=== PATIENT | male | born 1950 | race Caucasian/White ===

== ENCOUNTER 2018-08-18 09:28 | Outpatient (CLI) | payer MEDICARE ==
[2018-08-18 18:19] LABS: BUN - BLOOD UREA NITROGEN 15 mg/dL (6-20); CALCIUM 9.2 mg/dL (8.5-10.3); CARBON DIOXIDE - CO2 31 mmol/L (21-32); CHLORIDE 105 mmol/L (101-111); CHOL/HDL RATIO 2.9 (<5.0); CHOLESTEROL 198 mg/dL; CREATININE 0.9 mg/dL (0.6-1.2); GFR - MDRD 83 (>89); GLUCOSE 102 mg/dL (70-100); HDL CHOLESTEROL 68 mg/dL; LDL CHOLESTEROL,CALCULATED 116 mg/dL; LDL/HDL RATIO 1.7 (<3.6); SODIUM 140 mmol/L (135-145); VLDL CHOLESTEROL 14 mg/dL
[2018-08-18 18:21] LABS: HB2 TOTAL 13.9 g/dL; HEMOGLOBIN A1C 0.53 g/dL; HEMOGLOBIN A1C % 5.6 % (4.6-6.2)
== END 2018-08-18 09:29 | disposition home or self-care (01) ==
LOC: LAB.F 09:28
PROVIDERS: ATTEND Internal Medicine
DX: Z13.1 Encounter for screening for diabetes mellitus (principal); Z13.6 Encounter for screening for cardiovascular disorders
CPT/HCPCS: 36415; 80048; 80061; 83036; 83721

== ENCOUNTER 2020-10-07 08:24 | Day surgery (SDC) | payer MEDICARE ==
--- NOTE | 2020-10-07 08:12 | SURGERY HX AND PHYSICAL(T) ---
Surgical History & Physical - Chief Complaint/HPI Chief Complaint: Screening colonoscopy History of Present Illness: 70-year-old male with no significant past medical history who presents for screening colonoscopy. Last colonoscopy was 12 years prior with no significant findings. No family history of colorectal cancer, no history of prior abdominal surgery, no other worrisome symptoms or concerns in the interim. No polyps noted during last colonoscopy. He takes no systemic anticoagulation. - PMH/PSH/Social Hx Does the pt have a hx of MRSA?: No Eyes, Ears, Nose, Throat: None Cardiovascular: None Respiratory: None Skin: Herpes zoster Gastrointestinal: None Urinary: None Musculoskeletal: None Psychiatric: None General: Colonoscopy - Home Meds and Allergies Home Medications: Acyclovir [Zovirax] 1 tab ORAL TID 10/06/20 Ibuprofen 1 tab ORAL Q4H PRN 10/06/20 Allergies/Adverse Reactions: Allergies Allergy/AdvReac Type Severity Reaction Status Date / Time No Known Drug Allergies Allergy Verified 10/06/20 13:42 - Review of Systems Constitutional: Other (No significant complaints or pertinent positives on full review of systems) - Vital Signs Height: 1.85 m - Physical Exam General Appearance: positive: No acute distress, Alert Eyes Bilatera: positive: Normal inspection, PERRL, EOMI ENT: positive: ENT inspection nml, Pharynx nml Neck: positive: Nml inspection Respiratory: positive: Chest non-tender, No respiratory distress, Breath sounds nml. negative: Wheezes, Rales, Rhonchi Cardiovascular: positive: Regular rate & rhythm, No murmur, No gallop, Irregularly irregular Abdomen: positive: Non-tender, No distention. negative: Tenderness, Guarding, Rebound Skin: positive: Color nml Extremities: positive: Non-tender, Full ROM, Nml appearance Neurologic/Psychiatric: positive: Oriented x3, CN's nml (2-12), Motor nml, Sensation nml, Mood/affect nml - Patient Review Patient Review: Problems were reviewed with the patient during this visit. Medications were reviewed with the patient during this visit. Allergies were reviewed this patient during this visit. Pertinent Tests Reviewed: All pertitent test for this patient were reviewed. - Assessment & Plan Assessment and Plan: 70-year-old male with no significant past medical history here for screening colonoscopy. Colonoscopy indicated for screening. Symptoms are as follows none. Risks and benefits discussed at length. Informed consent obtained. Risks include but are not limited to, bleeding, infection, perforation, missed lesions, injury to local structures, need for further surgeries, and the periprocedural/sedation risks of heart attack stroke and . Patient was advised if any concerning areas were noted these would be sampled if too big to resect or performed for excision if within reasonable limits for endoscopic intervention. Please note that voice recognition software was used to transcribe this note and inadvertent errors might persist in spite of review and editing. I am obliged to you for your attention. I am thankful to you for allowing me to participate with you in this care of this patient.
[2020-10-07] MEDS ORDERED: LACTATED RINGERS 1,000 ML IV ONE (08:40)
[2020-10-07] MEDS ORDERED: MIDAZOLAM 2 MG/2 ML VIAL ONE ×2 (09:11→10:14)
[2020-10-07] MEDS ORDERED: fentaNYL 250 MCG/5 ML VIAL ONE (09:11)
[2020-10-07 09:53] VITALS: BP 121/84
== END 2020-10-07 08:25 | disposition home or self-care (01) ==
LOC: SDS 08:24
PROVIDERS: ATTEND Surgery
DX: Z12.11 Encounter for screening for malignant neoplasm of colon (principal); K64.8 Other hemorrhoids; K57.30 Diverticulosis of large intestine without perforation or abscess without bleeding
CPT/HCPCS: G0121; J3010; J7120

== ENCOUNTER 2020-10-13 10:05 | Outpatient (CLI) | payer MEDICARE ==
[2020-10-13 15:56] LABS: BASOPHILS # (AUTO) 0.1 10^3/uL (0.0-0.1); BASOPHILS % (AUTO) 1.2 %; EOSINOPHILS # (AUTO) 0.4 10^3/uL (0.0-0.7); EOSINOPHILS % (AUTO) 7.8 %; HGB - HEMOGLOBIN 13.1 g/dL (14.0-18.0); LYMPHOCYTES # (AUTO) 1.4 10^3/uL (1.5-3.5); LYMPHOCYTES % (AUTO) 27.9 %; MEAN CORPUSCULAR HEMOGLOBIN 29.2 pg (27.0-31.0); MEAN CORPUSCULAR VOLUME 91.3 fL (80.0-94.0); MEAN PLATELET VOLUME 11.1 fL (7.4-11.4); MONOCYTES # (AUTO) 0.4 10^3/uL (0.0-1.0); NEUTROPHILS # (AUTO) 2.8 10^3/uL (1.5-6.6); NEUTROPHILS % (AUTO) 54.9 %; PLT - PLATELET COUNT 197 10^3/uL (130-450); RED BLOOD COUNT 4.49 10^6/uL (4.70-6.10); RED CELL DISTRIBUTION WIDTH 13.3 % (12.0-15.0); WHITE BLOOD COUNT 5.1 x10^3/uL (4.8-10.8)
[2020-10-13 16:19] LABS: ALBUMIN 4.5 g/dL (3.2-5.5); ALBUMIN/GLOBULIN RATIO 1.7 (1.0-2.2); ALKALINE PHOSPHATASE 56 IU/L (42-121); ALT ALANINE AMINOTRANSFERASE 15 IU/L (10-60); AST ASPARTATE AMINOTRANSFERASE 18 IU/L (10-42); BILIRUBIN,TOTAL 0.8 mg/dL (0.2-1.0); BUN - BLOOD UREA NITROGEN 22 mg/dL (6-20); CALCIUM 9.6 mg/dL (8.5-10.3); CARBON DIOXIDE - CO2 27 mmol/L (21-32); CHLORIDE 106 mmol/L (101-111); CHOLESTEROL 218 mg/dL; CREATININE 0.8 mg/dL (0.6-1.2); GLUCOSE 114 mg/dL (70-100); HDL CHOLESTEROL 72 mg/dL; LDL CHOLESTEROL,CALCULATED 128 mg/dL; LDL/HDL RATIO 1.8 (<3.6); SODIUM 140 mmol/L (135-145); TOTAL PROTEIN 7.2 g/dL (6.7-8.2); VLDL CHOLESTEROL 18 mg/dL
[2020-10-13 20:16] LABS: HEMOGLOBIN A1c% 5.9 % (4.27-6.07)
== END 2020-10-13 10:06 | disposition home or self-care (01) ==
LOC: LAB.S 10:05
PROVIDERS: ATTEND Internal Medicine
DX: Z00.00 Encounter for general adult medical examination without abnormal findings (principal); R03.0 Elevated blood-pressure reading, without diagnosis of hypertension; Z12.5 Encounter for screening for malignant neoplasm of prostate; Z13.1 Encounter for screening for diabetes mellitus; Z13.220 Encounter for screening for lipoid disorders
CPT/HCPCS: 36415; 80053; 80061; 83036; 85025; G0103; 83721; 84153

== ENCOUNTER 2021-11-20 18:16 | Outpatient (CLI) | payer MEDICARE ==
--- NOTE | 2021-11-20 20:49 | XRAY Report ---
PROCEDURE: Finger(s) RT INDICATIONS: RIGHT THUMB PAIN/SAW INJURY TECHNIQUE: PA hand, 3 views of the thumb acquired. COMPARISON: None. FINDINGS: Bones: No acute fractures or dislocations. No suspicious bony lesions. Severe degenerative changes are seen at the first interphalangeal joint with full-thickness joint space narrowing and marginal o steophyte formation. Moderate degenerative changes are seen at the first metacarpophalangeal joint. A mild/moderate degene rative changes are seen in the first carpometacarpal and triscaphe joints. Mild scattered degenerativ e changes are seen in the interphalangeal joints of the fingers. Soft tissues: No suspicious soft tissue calcifications. Skin irregularity is seen at the distal rad ial aspect of the thumb. No radiopaque foreign body is seen. IMPRESSION: Soft tissue laceration at the distal thumb. No acute osseous abnormality. No radiopaque foreign body. If there is clinical concern or persistent symptoms, additional imaging such as repeat radiographs o r advanced imaging (e.g. CT, MRI) may be helpful for further evaluation. Reviewed by: Marin Villegas MD on 11/20/2021 8:48 PM PST Approved by: Marin Villegas MD on 11/20/2021 8:48 PM PST Station ID: [id number]
== END 2021-11-20 23:59 | disposition home or self-care (01) ==
LOC: DI.S 18:16
PROVIDERS: ATTEND Physician Assistant
DX: S61.011A Laceration without foreign body of right thumb without damage to nail, initial encounter (principal)

== ENCOUNTER 2021-12-02 09:49 | Outpatient (CLI) | payer MEDICARE ==
[2021-12-02 15:19] LABS: BASOPHILS # (AUTO) 0.1 10^3/uL (0.0-0.1); BASOPHILS % (AUTO) 0.7 %; EOSINOPHILS # (AUTO) 0.4 10^3/uL (0.0-0.7); EOSINOPHILS % (AUTO) 3.7 %; HCT - HEMATOCRIT 37.6 % (42.0-52.0); HGB - HEMOGLOBIN 11.9 g/dL (14.0-18.0); LYMPHOCYTES # (AUTO) 1.6 10^3/uL (1.5-3.5); MEAN CORPUSCULAR HEMOGLOBIN 28.6 pg (27.0-31.0); MEAN CORPUSCULAR HGB CONC 31.6 g/dL (32.0-36.0); MEAN CORPUSCULAR VOLUME 90.4 fL (80.0-94.0); MEAN PLATELET VOLUME 10.6 fL (7.4-11.4); MONOCYTES # (AUTO) 0.6 10^3/uL (0.0-1.0); MONOCYTES % (AUTO) 6.2 %; NEUTROPHILS % (AUTO) 72.2 %; PLT - PLATELET COUNT 233 10^3/uL (130-450); RED BLOOD COUNT 4.16 10^6/uL (4.70-6.10); RED CELL DISTRIBUTION WIDTH 13.2 % (12.0-15.0); WHITE BLOOD COUNT 9.6 x10^3/uL (4.8-10.8)
[2021-12-02 15:33] LABS: CHOL/HDL RATIO 2.9 (<5.0); CHOLESTEROL 188 mg/dL; HDL CHOLESTEROL 65 mg/dL; LDL CHOLESTEROL,CALCULATED 113 mg/dL; LDL/HDL RATIO 1.7 (<3.6); TRIGLYCERIDES 52 mg/dL; VLDL CHOLESTEROL 10 mg/dL
[2021-12-02 20:29] LABS: ESTIMATED AVERAGE GLUCOSE 120 mg/dL (70-100); HEMOGLOBIN A1c% 5.8 % (4.27-6.07)
== END 2021-12-02 09:50 | disposition home or self-care (01) ==
LOC: LAB.S 09:49
PROVIDERS: ATTEND Internal Medicine
DX: Z00.00 Encounter for general adult medical examination without abnormal findings (principal); R03.0 Elevated blood-pressure reading, without diagnosis of hypertension; G47.62 Sleep related leg cramps; Z13.1 Encounter for screening for diabetes mellitus; Z12.5 Encounter for screening for malignant neoplasm of prostate
CPT/HCPCS: 36415; 80061; 83036; 85025; G0103; 80053; 83721; 84153

== ENCOUNTER 2022-09-08 10:16 | Outpatient (CLI) | payer MEDICARE ==
[2022-09-08 15:09] LABS: BASOPHILS # (AUTO) 0.1 10^3/uL (0.0-0.1); BASOPHILS % (AUTO) 1.1 %; EOSINOPHILS # (AUTO) 0.5 10^3/uL (0.0-0.7); EOSINOPHILS % (AUTO) 8.4 %; HCT - HEMATOCRIT 40.3 % (42.0-52.0); HGB - HEMOGLOBIN 12.6 g/dL (14.0-18.0); LYMPHOCYTES # (AUTO) 1.8 10^3/uL (1.5-3.5); LYMPHOCYTES % (AUTO) 32.1 %; MEAN CORPUSCULAR HEMOGLOBIN 28.4 pg (27.0-31.0); MEAN CORPUSCULAR HGB CONC 31.3 g/dL (32.0-36.0); MEAN CORPUSCULAR VOLUME 90.8 fL (80.0-94.0); MONOCYTES # (AUTO) 0.5 10^3/uL (0.0-1.0); MONOCYTES % (AUTO) 8.1 %; NEUTROPHILS # (AUTO) 2.8 10^3/uL (1.5-6.6); NEUTROPHILS % (AUTO) 50.1 %; PLT - PLATELET COUNT 198 10^3/uL (130-450); RED BLOOD COUNT 4.44 10^6/uL (4.70-6.10); RED CELL DISTRIBUTION WIDTH 13.2 % (12.0-15.0); WHITE BLOOD COUNT 5.6 x10^3/uL (4.8-10.8)
[2022-09-08 15:27] LABS: ALBUMIN/GLOBULIN RATIO 1.3 (1.0-2.2); BILIRUBIN,TOTAL 0.7 mg/dL (0.2-1.0); CALCIUM 9.2 mg/dL (8.5-10.3); CREATININE 0.7 mg/dL (0.6-1.2)
== END 2022-09-08 10:17 | disposition home or self-care (01) ==
LOC: LAB.S 10:16
PROVIDERS: ATTEND Registered Nurse
DX: R59.0 Localized enlarged lymph nodes (principal)
CPT/HCPCS: 36415; 80053; 85025

== ENCOUNTER 2022-10-08 12:45 | Outpatient (CLI) | payer MEDICARE ==
[2022-10-08] MEDS ORDERED: iohexoL-300 100 ML VIAL ONE (12:59)
--- NOTE | 2022-10-08 16:18 | CT Report ---
PROCEDURE: SOFT TISSUE NECK W INDICATIONS: CERVICAL LYMPHADENOPATHY CONTRAST: 100ml omni 300 TECHNIQUE: After the administration of intravenous contrast, 3.0 mm axial sections acquired from the sella to th e aortic arch. Additional oblique axial 3.0 mm sections acquired through the pharynx. 3 mm thick co linda reformats were generated. For radiation dose reduction, the following was used: automated exp osure control, adjustment of mA and/or kV according to patient size. COMPARISON: None. FINDINGS: Image quality: There is artifact associated with the metallic hardware. Lymph nodes: At the area of clinical concern along the right neck, there is a partially calcified lym ph node that measures 2 x 1.6 cm. Mild mass effect can be seen upon the adjacent right internal jugul ar vein. No definite enlarged lymph nodes are seen elsewhere. Vessels: Visualized vasculature appears patent. Neck spaces: The oropharynx, nasopharynx, and pharynx demonstrate no mucosal lesions. The vocal cor ds, false vocal cords, pyriform sinuses, epiglottis, vallecula, and tongue base all appear normal. E xtramucosal spaces appear unremarkable. Glands: The parotid and submandibular glands appear normal. The thyroid is normal in size and there are no incidental findings. Miscellaneous: Visualized brain and orbits appear normal. Lung apices appear clear. Superficial so ft tissues appear normal. Bones: No suspicious bony lesions. Visualized sinuses and mastoids appear unremarkable. Cervical s pine degenerative changes are seen, which are worst at the C6-C7 level. IMPRESSION: At the area of clinical concern, there is a partially calcified enlarged lymph node seen at level 2A. In a patient of this age, please consider metastatic squamous cell carcinoma. No katharine additional enlarged lymph nodes are seen. No definite mucosal mass can be seen. Additional findings: Focal C6-C7 degenerative change Reviewed by: Theo Shay MD on 10/08/2022 3:17 PM [place] Approved by: Theo Shay MD on 10/08/2022 3:17 PM [facility] Station ID: [id number]
[2022-10-08] MEDS ORDERED: iohexoL-300 100 ML VIAL IVP ONE (18:54)
== END 2022-10-08 12:46 | disposition home or self-care (01) ==
LOC: DI 12:45
PROVIDERS: ATTEND Registered Nurse
DX: R59.0 Localized enlarged lymph nodes (principal); M47.812 Spondylosis without myelopathy or radiculopathy, cervical region
CPT/HCPCS: 70491; Q9967

== ENCOUNTER 2022-10-14 09:48 | Outpatient (CLI) | payer MEDICARE ==
[2022-10-14] MEDS ORDERED: LIDOCAINE-MPF 1% 5 ML VIAL ONE (10:06)
[2022-10-14] MEDS ORDERED: LIDOCAINE-MPF 1% 5 ML VIAL TD ONE (11:38)
--- NOTE | 2022-10-14 15:30 | Ultrasound Report ---
PROCEDURE: FNA Bx w/US Gdn 1st Les INDICATIONS: CERVICAL LYMPHADENOPATHY TECHNIQUE: The indications, alternatives, benefits, risks, and complications of the procedure were explained to the patient. Written informed consent was obtained and placed in the chart. The area of interest wa s examined sonographically and a site was chosen for ultrasound guided percutaneous sampling. The sk in was prepared and draped in the usual fashion, and anesthetized with 1% lidocaine infiltrated from the skin down to the lesion. Multiple passes were then performed, with [facility] A bandage was applied to the area of access at completion of t he study. COMPARISON: CT of the soft tissues of the neck 10/08/2022 FINDINGS: Location(s) of lesion(s) sampled: Right level 2 cervical lymph node [place]: 25 gauge hypodermic needles. Number of passes: 5 Medications: 1% lidocaine for local anaesthesia. Complications: None. IMPRESSION: Successful ultrasound-guided right neck lymph node fine needle aspiration, with cytology results pend ing. Reviewed by: Jalyn Jennings MD on 10/14/2022 3:29 PM PST Approved by: Jalyn Jennings MD on 10/14/2022 3:29 PM PST Station ID: [id number]
== END 2022-10-14 09:49 | disposition home or self-care (01) ==
LOC: DI 09:48
PROVIDERS: ATTEND Registered Nurse
DX: C96.9 Malignant neoplasm of lymphoid, hematopoietic and related tissue, unspecified (principal)
CPT/HCPCS: 10005

== ENCOUNTER 2022-12-21 10:36 | Emergency (ER) | payer MEDICARE ==
[2022-12-21] MEDS ORDERED: SODIUM CHLORIDE 0.9% 1,000 ML IV STA ×2 (11:33→12:22)
--- NOTE | 2022-12-21 12:25 | ED Physician Documentation ---
History of Present Illness - Stated complaint Stated Complaint: UNABLE TO DRINK WATER - Chief complaint Chief Complaint: General - History obtained from History obtained from: Patient - History of Present Illness Pain level max: 5 Pain level now: 5 - Additonal information Additional information: Patient is a 72-year-old male who states that he had surgery at the [facility] ago for throat cancer. He states he has been unable to drink since then. He is able to eat applesauce. He states that he feels dehydrated and his oncologist wanted him to receive fluids here. No fevers. No chills. No vomiting. No diarrhea. No constipation. Review of Systems Constitutional: denies: Fever, Chills Cardiac: denies: Chest pain / pressure Respiratory: denies: Cough GI: denies: Vomiting, Constipation Skin: denies: Rash Neurologic: denies: Headache PD PAST MEDICAL HISTORY - Past Medical History Cardiovascular: None Respiratory: None GI: None : None HEENT: None Psych: None Musculoskeletal: None Derm: Herpes zoster - Past Surgical History General: Colonoscopy - Present Medications Home Medications: Ambulatory Orders Medication Instructions Recorded Confirmed Acyclovir [Zovirax] 1 tab ORAL TID 10/06/20 10/06/20 Ibuprofen 1 tab ORAL Q4H PRN 10/06/20 10/06/20 - Allergies Allergies/Adverse Reactions: Allergies Allergy/AdvReac Type Severity Reaction Status Date / Time No Known Drug Allergies Allergy Verified 12/21/22 11:12 PD ED PE NORMAL - Vitals Vital signs reviewed: Yes - General General: Alert and oriented X 3, No acute distress - HEENT HEENT: PERRL, Other (Dry lips and tongue) - Neck Neck: Supple, no meningeal sign - Cardiac Cardiac: RRR, Strong equal pulses - Respiratory Respiratory: No respiratory distress, Clear bilaterally - Abdomen Abdomen: Soft, Non tender, Non distended - Derm Derm: Warm and dry - Extremities Extremities: No edema - Neuro Neuro: Alert and oriented X 3 - Psych Psych: Normal mood, Normal affect Results - Vitals Vitals: Vital Signs - 24 hr 12/21/22 12/21/22 11:07 13:20 Temperature 36.7 C Heart Rate 84 78 Respiratory 16 16 Rate Blood Pressure 181/78 H 175/87 H O2 Saturation 97 98 Oxygen O2 Source Room air - Labs Labs: Laboratory Tests 12/21/22 12/21/22 12:29 12:29 WBC 12.0 H RBC 4.14 L Hgb 11.9 L Hct 37.3 L MCV 90.1 MCH 28.7 MCHC 31.9 L RDW 13.2 Plt Count 218 MPV 10.2 Neut # (Auto) 9.4 H Lymph # (Auto) 1.0 L [place] # (Auto) 1.4 H Eos # (Auto) 0.2 Baso # (Auto) 0.0 Absolute Nucleated RBC 0.00 Nucleated RBC % 0.0 Sodium 141 Potassium 3.9 Chloride 106 Carbon Dioxide 24 Anion Gap 11.0 BUN 16 Creatinine 0.7 Estimated GFR (MDRD) 110 Glucose 126 H Calcium 8.2 L Phosphorus 2.9 Magnesium 2.3 Total Bilirubin 0.9 AST 21 ALT 27 Alkaline Phosphatase 50 Total Protein 6.6 L Albumin 3.2 Globulin 3.4 Albumin/Globulin Ratio 0.9 L Lipase 23 PD Medical Decision Making - ED course Complexity details: reviewed results, re-evaluated patient, considered differential, d/w patient ED course: CBC reveals a mild anemia, hemoglobin 11.9, white blood cell count 12.0. Your abdominal panel shows a mildly elevated blood glucose, mildly low calcium. No significant lab abnormalities on CBC or chemistry. He was given 2 L of IV fluid and feels better. He will try thickened liquids at home. He will follow- up with his doctor for further care. Information given regarding the [facility] clinic for IV hydration as needed Patient counseled regarding signs and symptoms for which I believe and urgent re-evaluation would be necessary. Patient with good understanding of and agreement to plan and is comfortable going home at this time This document was made in part using voice recognition software. While efforts are made to proofread this document, sound alike and grammatical errors may occur. Departure - Departure Disposition: 01 Home, Self Care Clinical Impression: Dehydration Condition: Good Instructions: ED Dehydration Follow-Up: Laura Urban ARNP [Primary Care Provider] - Within 3 Days Comments: Please follow up with your oncologist and primary care provider for further care. They can refer you to the [facility] for hydration infusions as well. The fax number is [phone] for orders. Discharge Date/Time: 12/21/22 13:28
[2022-12-21 12:35] LABS: BASOPHILS % (AUTO) 0.1 %; EOSINOPHILS # (AUTO) 0.2 10^3/uL (0.0-0.7); EOSINOPHILS % (AUTO) 1.4 %; HCT - HEMATOCRIT 37.3 % (42.0-52.0); HGB - HEMOGLOBIN 11.9 g/dL (14.0-18.0); LYMPHOCYTES % (AUTO) 8.5 %; MEAN CORPUSCULAR HEMOGLOBIN 28.7 pg (27.0-31.0); MEAN CORPUSCULAR HGB CONC 31.9 g/dL (32.0-36.0); MEAN CORPUSCULAR VOLUME 90.1 fL (80.0-94.0); MEAN PLATELET VOLUME 10.2 fL (7.4-11.4); MONOCYTES # (AUTO) 1.4 10^3/uL (0.0-1.0); MONOCYTES % (AUTO) 11.3 %; NEUTROPHILS # (AUTO) 9.4 10^3/uL (1.5-6.6); NEUTROPHILS % (AUTO) 78.2 %; PLT - PLATELET COUNT 218 10^3/uL (130-450); RED BLOOD COUNT 4.14 10^6/uL (4.70-6.10); RED CELL DISTRIBUTION WIDTH 13.2 % (12.0-15.0)
[2022-12-21 12:48] LABS: ALBUMIN 3.2 g/dL (3.2-5.5); ALBUMIN/GLOBULIN RATIO 0.9 (1.0-2.2); BILIRUBIN,TOTAL 0.9 mg/dL (0.2-1.0); CALCIUM 8.2 mg/dL (8.5-10.3); CREATININE 0.7 mg/dL (0.6-1.2); MAGNESIUM 2.3 mg/dL (1.7-2.8); PHOSPHORUS 2.9 mg/dL (2.5-4.6); POTASSIUM 3.9 mmol/L (3.5-5.0); TOTAL PROTEIN 6.6 g/dL (6.7-8.2)
[2022-12-21 13:22] VITALS: BP 175/87
== END 2022-12-21 13:28 | disposition home or self-care (01) ==
LOC: ED 10:36
DX: E86.0 Dehydration (principal)
CPT/HCPCS: 36415; 80053; 83690; 83735; 84100; 85025; 96360; 96361; 99284

== ENCOUNTER 2023-07-22 10:14 | Outpatient (CLI) | payer MEDICARE ==
[2023-07-22 14:24] LABS: BASOPHILS # (AUTO) 0.1 10^3/uL (0.0-0.1); BASOPHILS % (AUTO) 1.2 %; EOSINOPHILS # (AUTO) 0.4 10^3/uL (0.0-0.7); EOSINOPHILS % (AUTO) 8.5 %; HCT - HEMATOCRIT 38.9 % (42.0-52.0); HGB - HEMOGLOBIN 12.2 g/dL (14.0-18.0); LYMPHOCYTES # (AUTO) 1.3 10^3/uL (1.5-3.5); LYMPHOCYTES % (AUTO) 26.2 %; MEAN CORPUSCULAR HEMOGLOBIN 28.1 pg (27.0-31.0); MEAN CORPUSCULAR HGB CONC 31.4 g/dL (32.0-36.0); MEAN CORPUSCULAR VOLUME 89.6 fL (80.0-94.0); MEAN PLATELET VOLUME 11.1 fL (7.4-11.4); MONOCYTES # (AUTO) 0.5 10^3/uL (0.0-1.0); MONOCYTES % (AUTO) 9.5 %; NEUTROPHILS # (AUTO) 2.7 10^3/uL (1.5-6.6); NEUTROPHILS % (AUTO) 54.4 %; PLT - PLATELET COUNT 219 10^3/uL (130-450); RED BLOOD COUNT 4.34 10^6/uL (4.70-6.10); RED CELL DISTRIBUTION WIDTH 14.1 % (12.0-15.0)
[2023-07-22 14:45] LABS: ALBUMIN 4.2 g/dL (3.2-5.5); ALBUMIN/GLOBULIN RATIO 1.8 (1.0-2.2); ALKALINE PHOSPHATASE 61 IU/L (42-121); ALT ALANINE AMINOTRANSFERASE 12 IU/L (10-60); AST ASPARTATE AMINOTRANSFERASE 16 IU/L (10-42); BILIRUBIN,TOTAL 0.6 mg/dL (0.2-1.0); BUN - BLOOD UREA NITROGEN 20 mg/dL (6-20); CALCIUM 9.4 mg/dL (8.5-10.3); CARBON DIOXIDE - CO2 30 mmol/L (21-32); CHLORIDE 106 mmol/L (101-111); CHOL/HDL RATIO 2.8 (<5.0); CHOLESTEROL 191 mg/dL; CREATININE 0.8 mg/dL (0.6-1.3); GFR - MDRD 94 (>89); GLUCOSE 98 mg/dL (74-104); HDL CHOLESTEROL 69 mg/dL; LDL CHOLESTEROL,CALCULATED 109 mg/dL; LDL/HDL RATIO 1.6 (<3.6); POTASSIUM 4.1 mmol/L (3.5-4.5); SODIUM 141 mmol/L (135-145); TOTAL PROTEIN 6.5 g/dL (6.4-8.9); TRIGLYCERIDES 66 mg/dL (48-352); VLDL CHOLESTEROL 13 mg/dL
== END 2023-07-22 10:15 | disposition home or self-care (01) ==
LOC: LAB.S 10:14
PROVIDERS: ATTEND Registered Nurse
DX: C80.1 Malignant (primary) neoplasm, unspecified (principal); Z13.228 Encounter for screening for other metabolic disorders; R03.0 Elevated blood-pressure reading, without diagnosis of hypertension; R59.0 Localized enlarged lymph nodes; Z79.899 Other long term (current) drug therapy; Z13.220 Encounter for screening for lipoid disorders
CPT/HCPCS: 36415; 80053; 80061; 83721; 85025